=== PATIENT | female | born 1965 | race Two or more races ===

== ENCOUNTER 2018-03-09 10:09 | Day surgery (SDC) | payer OTHER ==
[2018-03-09] MEDS ORDERED: MIDAZOLAM 2 MG/2 ML SOL ONE (11:04)
[2018-03-09] MEDS ORDERED: FENTANYL 100MCG/2ML SOL ONE (11:05)
[2018-03-09] MEDS ORDERED: CEFAZOLIN SODIUM 1 GM PDS ONE (11:06)
[2018-03-09] MEDS ORDERED: METOCLOPRAMIDE HYDROCHLORIDE 5 MG/ML SOL ONE (11:49)
[2018-03-09] MEDS ORDERED: HYDROMORPHONE 1 MG/ML SYRINGE ONE (12:59)
[2018-03-09] MEDS ORDERED: SODIUM CHLORIDE 0.9% FLUSH 10 ML SOL IV ONE (13:04)
[2018-03-09] MEDS ORDERED: APAP/HYDROCODONE 325/5 TAB ONE (13:37)
[2018-03-09 13:56] VITALS: BP 119/73; PULSE 68; RESP 20; TEMP 97.3; O2SAT 100
== END 2018-03-09 14:30 | disposition home or self-care (01) | DRG 950 ==
LOC: SURG 10:09
PROVIDERS: ATTEND Orthopaedic Surgery
DX: S83.242D Other tear of medial meniscus, current injury, left knee, subsequent encounter (principal)
CPT/HCPCS: J0690; J2250; J2765; J3010; A9270-GY; J1170

== ENCOUNTER 2018-08-26 11:53 | Outpatient (CLI) | payer OTHER | END 2018-08-26 11:54 | disposition home or self-care (01) | LOC: CONVCARE 11:54 ==

== ENCOUNTER 2018-11-09 07:58 | Day surgery (SDC) | payer OTHER, BC ==
[2018-11-09] MEDS ORDERED: MIDAZOLAM 2 MG/2 ML SOL ONE (08:27)
[2018-11-09] MEDS ORDERED: PROPOFOL 10 MG/ML 200 MG/20 ML EMU IV ONE (08:27)
[2018-11-09] MEDS ORDERED: ONDANSETRON HCL 4 MG/2 ML SOL ONE (08:27)
[2018-11-09] MEDS ORDERED: FENTANYL 100MCG/2ML SOL ONE (08:28)
[2018-11-09] MEDS ORDERED: LIDOCAINE HCL 1% MPF 30 SOL ONE (08:28)
[2018-11-09] MEDS ORDERED: CEFAZOLIN SODIUM 1 GM PDS ONE (09:15)
[2018-11-09] MEDS ORDERED: DEXAMETHASONE 20 MG/5 ML (4 MG/ML SOL) ONE (09:25)
[2018-11-09] MEDS ORDERED: KETOROLAC TROMETHAMINE 30 MG/ML SOL ONE (10:14)
[2018-11-09] MEDS ORDERED: APAP/HYDROCODONE 1 EACH TABLET ONE (10:48)
[2018-11-09 11:52] VITALS: BP 126/72; PULSE 66; RESP 12; TEMP 97.5; O2SAT 97
== END 2018-11-09 12:04 | disposition home or self-care (01) | DRG 950 ==
LOC: SURG 07:58
PROVIDERS: ATTEND Orthopaedic Surgery
DX: S83.271D Complex tear of lateral meniscus, current injury, right knee, subsequent encounter (principal); S83.241D Other tear of medial meniscus, current injury, right knee, subsequent encounter
CPT/HCPCS: J0690; J1100; J1885; J2250; J2405; J3010; A9270-GY; J2001; J2704